=== PATIENT | female | born 1990 | race Two or more races ===

== ENCOUNTER → 2023-07-01 | Outpatient (CLI) | payer MEDICAID ==
[2023-07-01 07:41] LABS: Basophils # (auto) 0.1 10 ^3/uL (0-0.2); Basophils % (auto) 1.1 % (0.0-2.0); Eosinophils # (auto) 0.1 10 ^3/uL (0-0.8); Eosinophils % (auto) 1.4 % (0.0-7.0); Hematocrit 37.5 % (36.0-46.0); Hemoglobin 12.6 g/dL (12.2-16.2); Lymphocytes # (auto) 3.2 10 ^3/uL (0.4-5.4); Lymphocytes % (auto) 43.1 % (10.0-50.0); Mean Corpuscular Hemoglobin 30.1 pg (28.0-32.0); Mean Corpuscular Hgb Conc. 33.5 g/dL (32.0-36.0); Mean Corpuscular Volume 89.9 fL (80.0-100.0); Monocytes # (auto) 0.5 10 ^3/uL (0-1.3); Monocytes % (auto) 6.6 % (0.0-12.0); Neutrophils # (auto) 3.6 10 ^3/uL (1.6-8.6); Neutrophils % (auto) 47.8 % (37.0-80.0); Nucleated Red Blood Cells % 0.1 %; Red Blood Cells 4.18 10^6/uL (4.0-5.20); Red Cell Distribution Width 13.6 % (11.8-14.3); White Blood Cell 7.4 10^3/uL (4.4-10.8)
[2023-07-01 08:47] LABS: Follicle Stimulating Hormone 5.61 IU/L (SEE BELOW); Leuteinizing Hormone 5.1 IU/L
[2023-07-01 08:48] LABS: Prolactin 4.66 ng/mL (2.8-29.2)
== END | disposition home or self-care (01) ==
LOC: LAB 07:22
PROVIDERS: ATTEND Obstetrics & Gynecology
DX: N92.6 Irregular menstruation, unspecified (principal)
CPT/HCPCS: 36415; 82626; 82670; 83001; 83002; 83036; 84146; 84403; 84443; 85025

== ENCOUNTER 2023-10-13 08:13 | Emergency (ER) | payer MEDICAID ==
[~2023-10-13] VITALS: Ht 160 cm; Wt 101.0 kg
[2023-10-13 09:29] VITALS: BP 118/77; PULSE 80; RESP 18; O2SAT 98
[2023-10-13 10:02] LABS: Urine Bacteria FEW /hpf (None Seen); Urine Blood 3+ /uL (Negative); Urine Clarity Turbid (Clear); Urine Color Yellow (Yellow); Urine Mucus FEW (None Seen); Urine Protein, UAD 1+ (Negative); Urine Specific Gravity 1.032 (1.001-1.035); Urine Urobilinogen 2 mg/dL (Negative); Urine WBC 8 /hpf (0 - 5)
[2023-10-13] MEDS ORDERED: CEPH250C PO (11:00)
== END 2023-10-13 11:30 | disposition home or self-care (01) ==
LOC: ER 08:13
DX: O23.41 Unspecified infection of urinary tract in pregnancy, first trimester (principal); R10.2 Pelvic and perineal pain; Z3A.01 Less than 8 weeks gestation of pregnancy; Z79.899 Other long term (current) drug therapy
CPT/HCPCS: 36415; 76801; 76817; 81001; 84702

== ENCOUNTER 2023-12-02 09:34 | Emergency (ER) | payer MEDICAID ==
[~2023-12-02] VITALS: Ht 160 cm; Wt 98.9 kg
[~2023-12-02 09:34] MED LIST: CEPH250C PO
[2023-12-02 10:35] LABS: Urine Bacteria FEW /hpf (None Seen); Urine Blood Negative /uL (Negative); Urine Clarity Clear (Clear); Urine Color Colorless (Yellow); Urine Protein, UAD Negative (Negative); Urine Specific Gravity 1.004 (1.001-1.035); Urine Urobilinogen Normal (Negative); Urine WBC <1 /hpf (0 - 5)
[2023-12-02 12:31] VITALS: BP 124/81; PULSE 104; RESP 16; TEMP 98; O2SAT 98
== END 2023-12-02 13:40 | disposition home or self-care (01) ==
LOC: ER 09:34
DX: O26.892 Other specified pregnancy related conditions, second trimester (principal); R10.2 Pelvic and perineal pain; Z3A.14 14 weeks gestation of pregnancy
CPT/HCPCS: 76805; 81001

== ENCOUNTER 2024-01-16 09:45 | Observation (INO) | payer MEDICAID | END 2024-01-16 10:34 | disposition home or self-care (01) | LOC: UNDOADMOB 09:45 → LDRP 09:45 → UNDODISOB 10:34 | PROVIDERS: ADMIT Obstetrics & Gynecology; ATTEND Obstetrics & Gynecology | DX: O36.8120 Decreased fetal movements, second trimester, not applicable or unspecified (principal); Z3A.20 20 weeks gestation of pregnancy | CPT/HCPCS: 81002; 94760; G0378 ==

== ENCOUNTER 2024-03-27 10:00 | Observation (INO) | payer MEDICAID ==
--- NOTE | 2024-03-27 10:34 | DVH ---
BIOPHYSICAL PROFILE HISTORY: GDMA2 TECHNIQUE: Multiple transabdominal real-time grayscale sonographic images through the gravid uterus of the fetus with duplex Doppler color flow and M-mode spectral analysis FINDINGS: BIOPHYSICAL PROFILE: breathing score: 2 movement score: 2 tone score: 2 Quantitative LIANE score: 2 (LIANE: 14.1 Cm.) Total score: 8 The cervix not well visualized. Single live fetus in vertex presentation. heart rate 142 beats per minute. Anterior placenta without previa or abruption IMPRESSION: Biophysical profile score: 8
[2024-03-27 11:54] LABS: Basophils # (auto) 0.1 10 ^3/uL (0-0.2); Basophils % (auto) 0.7 % (0.0-2.0); Eosinophils # (auto) 0.1 10 ^3/uL (0-0.8); Eosinophils % (auto) 1.5 % (0.0-7.0); Hematocrit 32.5 % (36.0-46.0); Hemoglobin 11.5 g/dL (12.2-16.2); Lymphocytes # (auto) 2.7 10 ^3/uL (0.4-5.4); Lymphocytes % (auto) 30.6 % (10.0-50.0); Mean Corpuscular Hgb Conc. 35.4 g/dL (32.0-36.0); Mean Corpuscular Volume 90.4 fL (80.0-100.0); Monocytes # (auto) 0.6 10 ^3/uL (0-1.3); Monocytes % (auto) 6.9 % (0.0-12.0); Neutrophils # (auto) 5.4 10 ^3/uL (1.6-8.6); Neutrophils % (auto) 60.3 % (37.0-80.0); Platelet Count (auto) 374 10^3/uL (140-450); Red Blood Cells 3.59 10^6/uL (4.0-5.20); Red Cell Distribution Width 13.8 % (11.8-14.3); White Blood Cell 8.9 10^3/uL (4.4-10.8)
[2024-03-27 12:09] LABS: INR 1.02 (0.9-1.15); Partial Thromboplastin Time 28.9 SEC (24.5-34.5); Prothrombin Time 10.8 sec (9.3-11.8)
[2024-03-27 12:19] LABS: Urine Bacteria None Seen /hpf (None Seen)
[2024-03-27] MEDS ORDERED: LABE100T7 PO (12:25)
[2024-03-27] MEDS ORDERED: PREN-96 PO (12:25)
[2024-03-27 12:31] LABS: Alanine Aminotransferase 19 U/L (7-40); Albumin 4.1 g/dL (3.2-4.8); Alkaline Phosphatase 64 U/L (46-116); Anion Gap 8 (5-15); Aspartate Aminotransferase 16 U/L (13-40); Calcium 9.5 mg/dL (8.7-10.4); Carbon Dioxide 20 mmol/L (20-31); Chloride 111 mmol/L (98-107); Glucose 106 mg/dL (74-106); Potassium 3.5 mmol/L (3.5-5.1); Sodium 139 mmol/L (136-145); Uric Acid 3.9 mg/dL (3.1-7.8)
[2024-03-27 12:32] LABS: Bilirubin, Total 0.3 mg/dL (0.2-1.0); Total Protein 6.4 g/dL (5.7-8.2)
[2024-03-27 12:39] LABS: Protein, Urine 87.4 mg/dL (1-14)
[2024-03-27 12:40] LABS: BUN/Creatinine Ratio 9.3 (10.0-20.0); Blood Urea Nitrogen < 5 mg/dL (9-23)
[2024-03-27 12:44] LABS: Urine Blood Negative /uL (Negative); Urine Clarity Turbid (Clear); Urine Color Yellow (Yellow); Urine Mucus FEW (None Seen); Urine Protein, UAD 1+ (Negative); Urine Specific Gravity 1.033 (1.001-1.035); Urine Urobilinogen 3 mg/dL (Negative); Urine WBC 3 /hpf (0 - 5); Urine pH 6.5 (5.0-9.0)
[2024-03-27 12:50] LABS: Creatinine, Urine 261.81 mg/dL (30.0-125.0); Urine Protein/Creatinine Ratio 0.33
[2024-03-27] MEDS ORDERED: URSO300C2 PO (13:12)
--- NOTE | 2024-03-27 19:10 | DVHDS2 ---
Physician Discharge Progress N Final Diagnosis: Preeclampsia Problems List: (1) Chronic hypertension during (2) Preeclampsia (3) Third trimester (4) GDM, class A2 Operations or Procedures: Operations or Procedures 34yo IUP@30.4wks, pt sent from Dr. Menon's office with c/o itching in palms of hands and soles of feet. PNC with Dr. Menon, GDMA2/cHTN. +FM, denies UCs/LOF/VB/CABRERA/vision changes/RUQ pain. VSS except intermittent HTN UA wnl NST reactive (verified by 2 RNs) BPP wnl Bile acids ordered FKC/PTL/PreE precautions reviewed. Dr. Menon consulted, agrees with POC. Rx sent for ursodiol 300mg PO BID per Dr. Menon. [facility] Laboratory Tests Test 03/27/24 10:00 03/27/24 10:40 03/27/24 11:29 Range/Units Urine Color Yellow Yellow Urine Clarity Turbid H Clear Urine pH 6.5 5.0-9.0 Urine Specific [place] 1.033 1.001-1.035 Urine Protein 1+ H Negative Urine Ketones Negative Negative Urine Blood Negative Negative /uL Urine Nitrite Negative Negative Urine Bilirubin Negative Negative Urine Urobilinogen 3 H Negative mg/dL Urine Leukocyte Esterase Negative Negative /uL Urine RBC 2 0 - 4 /hpf Urine WBC 3 0 - 5 /hpf Urine Squamous Epithelial Cells Mod <5 /hpf Urine Bacteria None seen None Seen /hpf Urine Mucus Few None Seen Urine Creatinine 261.81 H 30.0-125.0 mg/dL Urine Protein/Creatinine Ratio 0.33 Urine Glucose Trace Normal mg/dL Urine Total Protein 87.4 H 1-14 mg/dL POC Glucose 121 H 70-106 mg/dl White Blood Count 8.9 4.4-10.8 10^3/uL Red Blood Count 3.59 L 4.0-5.20 10^6/uL Hemoglobin 11.5 L 12.2-16.2 g/dL Hematocrit 32.5 L 36.0-46.0 % Mean Corpuscular Volume 90.4 80.0-100.0 fL Mean Corpuscular Hemoglobin 32.0 28.0-32.0 pg Mean Corpuscular Hemoglobin Concent 35.4 32.0-36.0 g/dL Red Cell Distribution Width 13.8 11.8-14.3 % Platelet Count 374 140-450 10^3/uL Mean Platelet Volume 8.0 6.9-10.8 fL Neutrophils (%) (Auto) 60.3 37.0-80.0 % Lymphocytes (%) (Auto) 30.6 10.0-50.0 % Monocytes (%) (Auto) 6.9 0.0-12.0 % Eosinophils (%) (Auto) 1.5 0.0-7.0 % Basophils (%) (Auto) 0.7 0.0-2.0 % Neutrophils # (Auto) 5.4 1.6-8.6 10 ^3/uL Lymphocytes # (Auto) 2.7 0.4-5.4 10 ^3/uL Monocytes # (Auto) 0.6 0-1.3 10 ^3/uL Eosinophils # (Auto) 0.1 0-0.8 10 ^3/uL Basophils # (Auto) 0.1 0-0.2 10 ^3/uL Nucleated Red Blood Cells 0.0 % Prothrombin Time 10.8 9.3-11.8 sec Prothrombin Time INR 1.02 0.9-1.15 Activated Partial Thromboplast Time 28.9 24.5-34.5 SEC Miscellaneous Ref[facility]Refrg[facility] Sodium Level 139 136-145 mmol/L Potassium Level 3.5 3.5-5.1 mmol/L Chloride Level 111 H 98-107 mmol/L Carbon Dioxide Level 20 20-31 mmol/L Anion Gap 8 5-15 Blood Urea Nitrogen < 5 L 9-23 mg/dL Creatinine 0.54 L 0.550-1.02 mg/dL Glomerular Filtration Rate Calc 125 >90 mL/min BUN/Creatinine Ratio 9.3 L 10.0-20.0 Serum Glucose 106 74-106 mg/dL Uric Acid 3.9 3.1-7.8 mg/dL Calcium Level 9.5 8.7-10.4 mg/dL Total Bilirubin 0.3 0.2-1.0 mg/dL Aspartate Amino Transferase (AST) 16 13-40 U/L Alanine Aminotransferase (ALT) 19 7-40 U/L Alkaline Phosphatase 64 46-116 U/L Total Protein 6.4 5.7-8.2 g/dL Albumin 4.1 3.2-4.8 g/dL Condition on Discharge: Stable Disposition: Home Discharge Instructions: Diet: Consistent carbohydrate Activity: No Restrictions, As Tolerated Medications: see med list Follow Up Care: Specialist: f[facility] Discharge Statement: "Patient was advised to return to the ER or call 911 if any headaches, dizziness, shortness of breath, chest pain, abdominal pain, bleeding, fevers, or worsening of medical condition. Patient was counseled about treatment plan, medications, possible side effects, patientverbalized understanding. All questions were answered to the best of my ability. This discharge took greater then 30 minutes in planning, reviewing documentation, counseling the patient, and discussing with other team members." LAWANDA FOSTER CNM Mar 27, 2024 19:10
== END 2024-03-27 13:09 | disposition home or self-care (01) ==
LOC: LDRP 10:00
PROVIDERS: ADMIT Obstetrics & Gynecology; ATTEND Obstetrics & Gynecology
DX: O14.93 Unspecified pre-eclampsia, third trimester (principal); O24.419 Gestational diabetes mellitus in pregnancy, unspecified control; O13.3 Gestational [pregnancy-induced] hypertension without significant proteinuria, third trimester; O26.893 Other specified pregnancy related conditions, third trimester; R11.0 Nausea; R51.9 Headache, unspecified; Z3A.30 30 weeks gestation of pregnancy; Z79.899 Other long term (current) drug therapy; Z98.890 Other specified postprocedural states
CPT/HCPCS: 36415; 59025; 76818; 80053; 81001; 81002; 82570; 82948; 82962; 84156; 84550; 85025; 85610; 85730; 94760; G0378

== ENCOUNTER 2024-03-30 08:04 | Observation (INO) | payer MEDICAID ==
[~2024-03-30 08:04] MED LIST changes: -CEPH250C PO; +LABE100T7 PO; +PREN-96 PO; +URSO300C2 PO
--- NOTE | 2024-03-30 09:09 | DVH ---
BIOPHYSICAL PROFILE HISTORY: GDMA2/CHTN/Nishi TECHNIQUE: Multiple transabdominal real-time grayscale sonographic images through the gravid uterus of the fetus with duplex Doppler color flow and M-mode spectral analysis FINDINGS: BIOPHYSICAL PROFILE: breathing score: 2 movement score: 2 tone score: 2 Quantitative LIANE score: 2 (LIANE: 14.8 Cm.) Total score: 8 The cervix was not seen. heart rate 157 beats per minute. IMPRESSION: Biophysical profile score: 8
[2024-03-30 11:53] LABS: Amphetamine Screen, Urine Neg (NEGATIVE); Benzodiazephine Screen, Urine Neg (NEGATIVE)
[2024-03-30 11:54] LABS: Barbiturate Scree,Urine Neg (NEGATIVE); Cannabinoid Screen, Urine Neg (NEGATIVE); Cocaine Screen, Urine Neg (NEGATIVE); Opiate Scree,Urine Neg (NEGATIVE); Phencyclidine Screen, Urine Neg (NEGATIVE)
--- NOTE | 2024-03-30 17:07 | DVHDS2 ---
Physician Discharge Progress N Final Diagnosis: GDMA2, CHTN, Cholestasis Operations or Procedures: Operations or Procedures NST/BPP/LIANE Accucheck ALL the above WNL Condition on Discharge: Stable Disposition: Home Discharge Instructions: Diet: Consistent carbohydrate Activity: No Restrictions, As Tolerated Follow Up/Referral: as scheduled Medications: N/A Follow Up Care: Discharge Statement: "Patient was advised to return to the ER or call 911 if any headaches, dizziness, shortness of breath, chest pain, abdominal pain, bleeding, fevers, or worsening of medical condition. Patient was counseled about treatment plan, medications, possible side effects, patientverbalized understanding. All questions were answered to the best of my ability. This discharge took greater then 30 minutes in planning, reviewing documentation, counseling the patient, and discussing with other team members." ANDREA INMAN DO Mar 30, 2024 17:07
== END 2024-03-30 12:12 | disposition home or self-care (01) ==
LOC: LDRP 08:04
PROVIDERS: ADMIT Obstetrics & Gynecology; ATTEND Obstetrics & Gynecology
DX: O24.419 Gestational diabetes mellitus in pregnancy, unspecified control (principal); O13.3 Gestational [pregnancy-induced] hypertension without significant proteinuria, third trimester; O26.643 Intrahepatic cholestasis of pregnancy, third trimester; K83.1 Obstruction of bile duct; Z3A.31 31 weeks gestation of pregnancy; Z79.899 Other long term (current) drug therapy
CPT/HCPCS: 59025; 76818; 80307; 81002; 82948; 82962; 94760; G0378

== ENCOUNTER 2024-04-03 08:03 | Observation (INO) | payer MEDICAID ==
[~2024-04-03] VITALS: Ht 160 cm; Wt 68.0 kg
[2024-04-03] MEDS ORDERED: LACTATED RINGER'S 1,000 ML IV ONE (08:45)
[2024-04-03] MEDS: LACTATED RINGER'S 1,000 ML IV ONE (09:13)
[2024-04-03] MEDS: BETAMETHASONE ACET (30mg/5ml) 5ml Vial 6mg/ml IM ONE (09:14)
[2024-04-03] MEDS: TERBUTALINE SULFATE 1 MG/ML 1ML VIAL SC SCH (09:34)
--- NOTE | 2024-04-03 10:22 | DVH ---
BIOPHYSICAL PROFILE HISTORY: GDMA2/yuli/CHTN TECHNIQUE: Multiple transabdominal real-time grayscale sonographic images through the gravid uterus of the fetus with duplex Doppler color flow and M-mode spectral analysis FINDINGS: BIOPHYSICAL PROFILE: breathing score: 2 movement score: 2 tone score: 2 Quantitative LIANE score: 2 (LIANE: 21.2 Cm.) Total score: 8/8 Single live fetus in cephalic presentation. heart rate 144 beats per minute. Anterior placenta without previa or abruption IMPRESSION: 1. Biophysical profile score: 8/8 HS:Y
--- NOTE | 2024-04-03 11:45 | DVH ---
CLINICAL HISTORY: cervical length/ labor. TECHNIQUE: Limited transvaginal sonographic imaging of the cervix was performed to evaluate cervical length. COMPARISON: Correlation made to recent BP exam dated 04/03/2024. FINDINGS: Cervical length measures 3.6 cm. There is funneling of the cervix extending up to 2.4 cm. IMPRESSION: Funneling of the cervix with cervical length of 3.6 cm.
[2024-04-03] MEDS ORDERED: NIFE10CA52 PO ×2 (11:55)
[2024-04-03] MEDS ORDERED: METF-370 PO (12:11)
[2024-04-03] MEDS ORDERED: GLYB2.5T8 PO (12:11)
--- NOTE | 2024-04-03 18:12 | DVHDS2 ---
Physician Discharge Progress N Final Diagnosis: testing for GDMA2, CHTN, Preeclampsia, cholestasis Secondary Diagnosis: PTL Problems List: (1) Preeclampsia (2) Third trimester (3) GDM, class A2 (4) labor (5) Cholestasis during (6) Chronic hypertension during Operations or Procedures: Operations or Procedures 34yo IUP@31.4wks here for testing. Denies UCs/LOF/VB/CABRERA/vision changes/RUQ pain. Endorses +FM. VSS NST reactive TOCO: regular UCs initially that resolved with treatment Treated PTL with terbutaline SQ x3 and 1L LR IV bolus Betamethasone IM first dose given BPP wnl CVL 3.4cm with funneling FKC/PTL precautions reviewed Pt scheduled to see ship wirer at [facility] OB office today 04/03/24 at 1315 d ue to pts hx of not showing up to those diabetes edu visits. Pt educated on risks of IUFD with uncontrolled GDMA2. Dr. Menon consulted, agrees with POC. Rx sent for procardia for pt to take until 36 wks. Condition on Discharge: Stable Disposition: Home Discharge Instructions: Diet: Consistent carbohydrate Activity: See Comment Activity comment: pelvic rest Follow Up/Referral: f/u with [facility] on 04/04/24 for second dose of betamethasone Medications: see med list Follow Up Care: Specialist: f/u on 04/04/24 Discharge Statement: "Patient was advised to return to the ER or call 911 if any headaches, dizziness, shortness of breath, chest pain, abdominal pain, bleeding, fevers, or worsening of medical condition. Patient was counseled about treatment plan, medications, possible side effects, patientverbalized understanding. All questions were answered to the best of my ability. This discharge took greater then 30 minutes in planning, reviewing documentation, counseling the patient, and discussing with other team members." LAWANDA FOSTER CNM Apr 03, 2024 18:12
== END 2024-04-03 12:22 | disposition home or self-care (01) ==
LOC: LDRP 08:03
PROVIDERS: ADMIT Obstetrics & Gynecology; ATTEND Obstetrics & Gynecology
DX: O14.93 Unspecified pre-eclampsia, third trimester (principal); O24.419 Gestational diabetes mellitus in pregnancy, unspecified control; O60.03 Preterm labor without delivery, third trimester; O26.643 Intrahepatic cholestasis of pregnancy, third trimester; K83.1 Obstruction of bile duct; O13.3 Gestational [pregnancy-induced] hypertension without significant proteinuria, third trimester; Z3A.31 31 weeks gestation of pregnancy; Z88.0 Allergy status to penicillin; Z88.5 Allergy status to narcotic agent; Z79.899 Other long term (current) drug therapy
CPT/HCPCS: 59025; 76815; 76818; 81002; 82948; 82962; 94760; 96360; 96361; 96372; G0378; J0702; J3105

== ENCOUNTER 2024-04-04 11:30 | Observation (INO) | payer MEDICAID ==
[~2024-04-04 11:30] MED LIST changes: +GLYB2.5T8 PO; -LABE100T7 PO; +METF-370 PO; +NIFE10CA52 PO
[2024-04-04] MEDS: BETAMETHASONE ACET (30mg/5ml) 5ml Vial 6mg/ml IM ONE (12:18)
--- NOTE | 2024-04-04 12:48 | DVHDS2 ---
Physician Discharge Progress N Final Diagnosis: gdm Operations or Procedures: Operations or Procedures nst,celestone Condition on Discharge: Good Disposition: Home Discharge Instructions: Diet: Regular Activity: No Restrictions, As Tolerated Medications: na Follow Up Care: Specialist: 2d Discharge Statement: "Patient was advised to return to the ER or call 911 if any headaches, dizziness, shortness of breath, chest pain, abdominal pain, bleeding, fevers, or worsening of medical condition. Patient was counseled about treatment plan, medications, possible side effects, patientverbalized understanding. All questions were answered to the best of my ability. This discharge took greater then 30 minutes in planning, reviewing documentation, counseling the patient, and discussing with other team members." EDIS MILLER DO Apr 04, 2024 12:48
[2024-04-04] MEDS: LACTATED RINGER'S 1,000 ML IV ONE (13:30)
== END 2024-04-04 15:03 | disposition home or self-care (01) ==
LOC: LDRP 11:30
PROVIDERS: ADMIT Obstetrics & Gynecology; ATTEND Obstetrics & Gynecology
DX: O24.419 Gestational diabetes mellitus in pregnancy, unspecified control (principal); O13.3 Gestational [pregnancy-induced] hypertension without significant proteinuria, third trimester; Z3A.31 31 weeks gestation of pregnancy; Z88.0 Allergy status to penicillin; Z88.5 Allergy status to narcotic agent; Z88.1 Allergy status to other antibiotic agents; Z79.899 Other long term (current) drug therapy
CPT/HCPCS: 59025; 81002; 82948; 82962; 94760; 96360; 96361; 96372; G0378

== ENCOUNTER 2024-04-07 04:15 | Observation (INO) | payer MEDICAID ==
[~2024-04-07 04:15] MED LIST changes: +LABE100T7 PO
--- NOTE | 2024-04-07 09:03 | DVH ---
CLINICAL HISTORY: Gestational diabetes. Hypertension. Cholestasis. COMPARISON: US BIOPHYSICAL PROFILE on DOS: 04/03/24, US BIOPHYSICAL PROFILE on DOS: 03/30/24, US BIOP HYSICAL PROFILE on DOS: 03/27/24 TECHNIQUE: biophysical profile was performed. Transabdominal sonographic images of the fetus we re obtained. FINDINGS: The fetus is in cephalic position. heart rate measures 153 BPM. Amniotic fluid index measures 18.5 cm. The placenta is anterior in position. Cervix is closed, measuring up to 3.1 cm in l ength. BPP profile is an overall score of 8/8, with 2/2 points for breathing, with at least one episode of breathing over a 30 second duration during a 30 minute observation, 2/2 points for m ovements, with 3 or more discrete body or limb movements, 2/2 points for tone, with one or more episodes of extremity extension with return to flexion, or opening and closing of hand, and 2/ 2 points for amniotic fluid, with at least 1 pocket of amniotic fluid that measures 2 cm in 2 perpend icular planes. IMPRESSION: BPP score of 8/8.
--- NOTE | 2024-04-07 19:00 | DVHDS2 ---
Physician Discharge Progress N Final Diagnosis: gdm Operations or Procedures: Operations or Procedures nst,sono Other Interventions Other Interventions pt urhged to be compliant with gdm Condition on Discharge: Good Disposition: Home Discharge Instructions: Diet: Consistent carbohydrate Activity: No Restrictions, As Tolerated Medications: na Follow Up Care: Specialist: 3d Discharge Statement: "Patient was advised to return to the ER or call 911 if any headaches, dizz iness, shortness of breath, chest pain, abdominal pain, bleeding, fevers, or worsening of medical condition. Patient was counseled about treatment plan, medications, possible side effects, patientverbalized understanding. All questions were answered to the best of my ability. This discharge took greater then 30 minutes in planning, reviewing documentation, counseling the patient, and discussing with other team members." EDIS MILLER DO Apr 07, 2024 19:00
== END 2024-04-07 09:30 | disposition home or self-care (01) ==
LOC: LDRP 07:55
PROVIDERS: ADMIT Obstetrics & Gynecology; ATTEND Obstetrics & Gynecology
DX: O26.643 Intrahepatic cholestasis of pregnancy, third trimester (principal); K83.1 Obstruction of bile duct; O24.419 Gestational diabetes mellitus in pregnancy, unspecified control; O13.3 Gestational [pregnancy-induced] hypertension without significant proteinuria, third trimester; Z79.899 Other long term (current) drug therapy; Z98.890 Other specified postprocedural states; Z3A.32 32 weeks gestation of pregnancy
CPT/HCPCS: 59025; 76818; 81002; 82948; 82962; 94760; G0378

== ENCOUNTER 2024-04-10 08:14 | Observation (INO) | payer MEDICAID ==
[~2024-04-10] VITALS: Ht 162.6 cm; Wt 83.9 kg
[~2024-04-10 08:14] MED LIST changes: -LABE100T7 PO
--- NOTE | 2024-04-10 08:54 | DVH ---
BIOPHYSICAL PROFILE HISTORY: Matthew/HTN/GDMA2 Comparison Study: 04/07/2024 TECHNIQUE: Multiple real-time grayscale sonographic images through the gravid uterus of the fetus wi th duplex Doppler color flow and M-mode spectral analysis FINDINGS: BIOPHYSICAL PROFILE: breathing score: 2 movement score: 2 tone score: 2 Quantitative LIANE score: 2 (LIANE: 16.2 Cm.) Total score: 8 The cervix is closed and measures 3.2 cm Single live fetus in cephalic presentation. heart rate 154 beats per minute. Anterior placenta without previa or abruption IMPRESSION: Biophysical profile score: 8
[2024-04-10 10:20] LABS: Basophils # (auto) 0 10 ^3/uL (0-0.2); Basophils % (auto) 0.3 % (0.0-2.0); Eosinophils # (auto) 0.1 10 ^3/uL (0-0.8); Hematocrit 31.7 % (36.0-46.0); Hemoglobin 10.6 g/dL (12.2-16.2); Lymphocytes # (auto) 2.6 10 ^3/uL (0.4-5.4); Lymphocytes % (auto) 28.6 % (10.0-50.0); Mean Corpuscular Hemoglobin 30.2 pg (28.0-32.0); Mean Corpuscular Hgb Conc. 33.5 g/dL (32.0-36.0); Monocytes # (auto) 0.7 10 ^3/uL (0-1.3); Monocytes % (auto) 7.3 % (0.0-12.0); Neutrophils # (auto) 5.7 10 ^3/uL (1.6-8.6); Neutrophils % (auto) 62.8 % (37.0-80.0); Platelet Count (auto) 360 10^3/uL (140-450); Red Blood Cells 3.52 10^6/uL (4.0-5.20); Red Cell Distribution Width 13.7 % (11.8-14.3); White Blood Cell 9.1 10^3/uL (4.4-10.8)
[2024-04-10 10:37] LABS: INR 1.01 (0.9-1.15); Prothrombin Time 10.7 sec (9.3-11.8)
[2024-04-10 10:41] LABS: Alanine Aminotransferase < 9 U/L (7-40); Albumin 3.6 g/dL (3.2-4.8); Alkaline Phosphatase 58 U/L (46-116); Anion Gap 9 (5-15); Aspartate Aminotransferase < 8 U/L (13-40); BUN/Creatinine Ratio 10.7 (10.0-20.0); Bilirubin, Total 0.2 mg/dL (0.2-1.0); Blood Urea Nitrogen 8 mg/dL (9-23); Calcium 9.2 mg/dL (8.7-10.4); Carbon Dioxide 19 mmol/L (20-31); Chloride 108 mmol/L (98-107); Glucose 97 mg/dL (74-106); Potassium 3.6 mmol/L (3.5-5.1); Sodium 136 mmol/L (136-145); Total Protein 5.6 g/dL (5.7-8.2)
[2024-04-10] MEDS ORDERED: NIFE10CA52 PO (11:42)
--- NOTE | 2024-04-10 11:42 | DVHDS2 ---
Physician Discharge Progress N Final Diagnosis: testing for GDMA2, yuli, cHTN, preE Operations or Procedures: Operations or Procedures 34yo IUP@32.4wks, +FM, denies UCs/VB/LOF. Pt reports feeling sick. VSS except hypotension (1L LR IV bolus given) UA wnl Category II EFM BPP 12/14 PreE repeat labs ordered Dr. Menon made aware of EFM and lab/sono results, orders given to D/C home and return for NST/BPP on tuesday04/13/24. Changed procardia 10mg PO from q4hrs to Q8hrs for hypotension. FKC/PTL precautions reviewed. Laboratory Tests Test 04/10/24 09:46 04/10/24 10:07 Range/Units White Blood Count 9.1 4.4-10.8 10^3/uL Red Blood Count 3.52 L 4.0-5.20 10^6/uL Hemoglobin 10.6 L 12.2-16.2 g/dL Hematocrit 31.7 L 36.0-46.0 % Mean Corpuscular Volume 90.0 80.0-100.0 fL Mean Corpuscular Hemoglobin 30.2 28.0-32.0 pg Mean Corpuscular Hemoglobin Concent 33.5 32.0-36.0 g/dL Red Cell Distribution Width 13.7 11.8-14.3 % Platelet Count 360 140-450 10^3/uL Mean Platelet Volume 9.0 6.9-10.8 fL Neutrophils (%) (Auto) 62.8 37.0-80.0 % Lymphocytes (%) (Auto) 28.6 10.0-50.0 % Monocytes (%) (Auto) 7.3 0.0-12.0 % Eosinophils (%) (Auto) 1.0 0.0-7.0 % Basophils (%) (Auto) 0.3 0.0-2.0 % Neutrophils # (Auto) 5.7 1.6-8.6 10 ^3/uL Lymphocytes # (Auto) 2.6 0.4-5.4 10 ^3/uL Monocytes # (Auto) 0.7 0-1.3 10 ^3/uL Eosinophils # (Auto) 0.1 0-0.8 10 ^3/uL Basophils # (Auto) 0 0-0.2 10 ^3/uL Nucleated Red Blood Cells 0.0 % Prothrombin Time 10.7 9.3-11.8 sec Prothrombin Time INR 1.01 0.9-1.15 Activated Partial Thromboplast Time 29.0 24.5-34.5 SEC Sodium Level 136 136-145 mmol/L Potassium Level 3.6 3.5-5.1 mmol/L Chloride Level 108 H 98-107 mmol/L Carbon Dioxide Level 19 L 20-31 mmol/L Anion Gap 9 5-15 Blood Urea Nitrogen 8 L 9-23 mg/dL Creatinine 0.75 0.550-1.02 mg/dL Glomerular Filtration Rate Calc 108 >90 mL/min BUN/Creatinine Ratio 10.7 10.0-20.0 Serum Glucose 97 74-106 mg/dL Hemoglobin A1c 6.2 H <5.7 % A1C Uric Acid 4.0 3.1-7.8 mg/dL Calcium Level 9.2 8.7-10.4 mg/dL Total Bilirubin 0.2 0.2-1.0 mg/dL Aspartate Amino Transferase (AST) < 8 L 13-40 U/L Alanine Aminotransferase (ALT) < 9 7-40 U/L Alkaline Phosphatase 58 46-116 U/L Total Protein 5.6 L 5.7-8.2 g/dL Albumin 3.6 3.2-4.8 g/dL POC Glucose 96 70-106 mg/dl Other Interventions Other Interventions [place] [address] Ph: [phone] DIAGNOSTIC IMAGING Diagnostic Imaging Report : [id number] Signed PATIENT: AARTI CARDENAS ACCT: [id number] UNIT: [id number] : 1990 LOC: [facility] ROOM / BED: TRIAGE1 / A AGE / SEX: 34 / F ADM STATUS: ADM IN SERVICE 3 ORDERING PHYSICIAN: LAWANDA FOSTER CNM PROCEDURE(s): BPP - BIOPHYSICAL PROFILE REASON: Yuli/HTN/GDMA2 ORDER NUMBER(s): [id number], ACCESSION NUMBER(s): [id number] BIOPHYSICAL PROFILE HISTORY: Yuli/HTN/GDMA2 Comparison Study: 04/07/2024 TECHNIQUE: Multiple real-time grayscale sonographic images through the gravid uterus of the fetus with duplex Doppler color flow and M-mode spectral analysis FINDINGS: BIOPHYSICAL PROFILE: breathing score: 2 movement score: 2 tone score: 2 Quantitative LIANE score: 2 (LIANE: 16.2 Cm.) Total score: 8 The cervix is closed and measures 3.2 cm Single live fetus in cephalic presentation. heart rate 154 beats per minute. Anterior placenta without previa or abruption IMPRESSION: Biophysical profile score: 8 ATED BY: EDGAR MARTINO MD DICTATED DATE/TIME: 04/10/24849 SIGNED BY: EDGAR MARTINO MD SIGNED DATE/TIME: 04/10/24849 CC: Condition on Discharge: Stable Disposition: Home Discharge Instructions: Diet: Consistent carbohydrate Activity: No Restrictions, As Tolerated Medications: see med list Follow Up Care: Specialist: return for NST/BPP on tuesday04/13/24 Discharge Statement: "Patient was advised to return to the ER or call 911 if any headaches, dizziness, shortness of breath, chest pain, abdominal pain, bleeding, fevers, or worsening of medical condition. Patient was counseled about treatment plan, medications, possible side effects, patientverbalized understanding. All questions were answered to the best of my ability. This discharge took greater then 30 minutes in planning, reviewing documentation, counseling the patient, and discussing with other team members." LAWANDA FOSTER CNM Apr 10, 2024 11:42
[2024-04-10 12:38] LABS: Urine Bacteria None Seen /hpf (None Seen)
[2024-04-10 12:50] LABS: Urine Blood Negative /uL (Negative); Urine Clarity Turbid (Clear); Urine Color Yellow (Yellow); Urine Hyaline Cast FEW /lpf (0 - 2); Urine Mucus FEW (None Seen); Urine Protein, UAD 1+ (Negative); Urine Specific Gravity 1.016 (1.001-1.035); Urine Urobilinogen Normal (Negative); Urine WBC 8 /hpf (0 - 5)
[2024-04-10 13:02] LABS: Protein, Urine 65.1 mg/dL (1-14)
[2024-04-10 13:05] LABS: Creatinine, Urine 150.64 mg/dL (30.0-125.0); Urine Protein/Creatinine Ratio 0.43
[2024-04-10] MEDS: LACTATED RINGER'S 1,000 ML IV ONE (13:05)
== END 2024-04-10 12:18 | disposition home or self-care (01) ==
LOC: LDRP 08:14 → UNDOADMOB 08:14 → LDRP 08:15 → UNDODISOB 12:18
PROVIDERS: ADMIT Obstetrics & Gynecology; ATTEND Obstetrics & Gynecology
DX: O24.419 Gestational diabetes mellitus in pregnancy, unspecified control (principal); O13.3 Gestational [pregnancy-induced] hypertension without significant proteinuria, third trimester; O26.643 Intrahepatic cholestasis of pregnancy, third trimester; K83.1 Obstruction of bile duct; Z3A.32 32 weeks gestation of pregnancy; Z88.0 Allergy status to penicillin; Z88.5 Allergy status to narcotic agent; Z79.899 Other long term (current) drug therapy
CPT/HCPCS: 36415; 59025; 76818; 80053; 81001; 81002; 82570; 82948; 82962; 83036; 84156; 84550; 85025; 85610; 85730; 96360; 96361; G0378

== ENCOUNTER 2024-04-13 11:48 | Observation (INO) | payer MEDICAID ==
[~2024-04-13] VITALS: Ht 160 cm; Wt 103.9 kg
[2024-04-20 12:06] LABS: Protein, Urine 44.6 mg/dL (1-14)
[2024-04-20 12:08] LABS: Creatinine, Urine 170.83 mg/dL (30.0-125.0); Urine Protein/Creatinine Ratio 0.26
[2024-04-20 12:10] LABS: Alanine Aminotransferase 14 U/L (7-40); Albumin 4.1 g/dL (3.2-4.8); Alkaline Phosphatase 92 U/L (46-116); Anion Gap 12 (5-15); Aspartate Aminotransferase 15 U/L (13-40); BUN/Creatinine Ratio 9.3 (10.0-20.0); Calcium 10.3 mg/dL (8.7-10.4); Carbon Dioxide 20 mmol/L (20-31); Glucose 103 mg/dL (74-106); Potassium 3.8 mmol/L (3.5-5.1); Sodium 139 mmol/L (136-145)
[2024-04-20 12:11] LABS: Blood Urea Nitrogen 7 mg/dL (9-23); Chloride 107 mmol/L (98-107); Total Protein 6.4 g/dL (5.7-8.2)
[2024-04-20 12:16] LABS: Basophils # (auto) 0.1 10 ^3/uL (0-0.2); Basophils % (auto) 0.7 % (0.0-2.0); Eosinophils # (auto) 0.1 10 ^3/uL (0-0.8); Eosinophils % (auto) 0.6 % (0.0-7.0); Hematocrit 36.1 % (36.0-46.0); Hemoglobin 12.2 g/dL (12.2-16.2); Lymphocytes % (auto) 27.9 % (10.0-50.0); Mean Corpuscular Hemoglobin 30.2 pg (28.0-32.0); Mean Corpuscular Hgb Conc. 33.8 g/dL (32.0-36.0); Mean Corpuscular Volume 89.2 fL (80.0-100.0); Monocytes # (auto) 0.7 10 ^3/uL (0-1.3); Monocytes % (auto) 6.2 % (0.0-12.0); Neutrophils # (auto) 6.9 10 ^3/uL (1.6-8.6); Neutrophils % (auto) 64.6 % (37.0-80.0); Nucleated Red Blood Cells % 0.1 %; Platelet Count (auto) 355 10^3/uL (140-450); Red Blood Cells 4.05 10^6/uL (4.0-5.20); Red Cell Distribution Width 13.6 % (11.8-14.3); White Blood Cell 10.7 10^3/uL (4.4-10.8)
[2024-04-20 12:21] LABS: Uric Acid 5.1 mg/dL (3.1-7.8)
[2024-04-20 12:25] LABS: Bilirubin, Total 0.2 mg/dL (0.2-1.0)
--- NOTE | 2024-04-20 12:47 | DVH ---
BIOPHYSICAL PROFILE HISTORY: GDMA2, NESTOR, PTL TECHNIQUE: Multiple transabdominal real-time grayscale sonographic images through the gravid uterus of the fetus with duplex Doppler color flow and M-mode spectral analysis FINDINGS: BIOPHYSICAL PROFILE: breathing score: 2 movement score: 2 tone score: 2 Quantitative LIANE score: 2 (LIANE: 10.0 Cm.) Total score: 8/8 The cervix measures 4.3 cm and contains trace fluid. Single live fetus in cephalic presentation. heart rate 161 beats per minute. Anterior placenta without previa or abruption IMPRESSION: 1. Biophysical profile score: 8/8 2. Trace fluid within the cervix. Cervix measures 4.3 cm in length. HS:Y
[2024-04-20 12:52] LABS: Urine Bacteria FEW /hpf (None Seen); Urine Blood Negative /uL (Negative); Urine Color Yellow (Yellow); Urine Mucus FEW (None Seen); Urine Protein, UAD TRACE (Negative); Urine Specific Gravity 1.025 (1.001-1.035); Urine Squamous Epithelial Cell FEW /hpf (<5); Urine Urobilinogen Normal (Negative); Urine WBC 5 /hpf (0 - 5); Urine pH 6.5 (5.0-9.0)
[2024-04-20 12:53] LABS: Urine Clarity Clear (Clear)
--- NOTE | 2024-04-20 15:11 | DVHDS2 ---
Physician Discharge Progress N Final Diagnosis: GDMA2, Cholestasis of , Threatened labor, Gestational HTN Operations or Procedures: Operations or Procedures NST/BPP/LIANE Accucheck PIH labs ALL OF THE ABOVE WNL Condition on Discharge: Stable Disposition: Home Discharge Instructions: Diet: Consistent carbohydrate Activity: No Restrictions, As Tolerated Follow Up/Referral: As scheduled 2x/wk Medications: No new meds Follow Up Care: Discharge Statement: "Patient was advised to return to the ER or call 911 if any headaches, dizziness, shortness of breath, chest pain, abdominal pain, bleeding, fevers, or worsening of medical condition. Patient was counseled about treatment plan, medications, possible side effects, patientverbalized understanding. All questions were answered to the best of my ability. This discharge took greater then 30 minutes in planning, reviewing documentation, counseling the patient, and discussing with other team members." ANDREA INMAN DO Apr 20, 2024 15:11
== END 2024-04-20 13:46 | disposition home or self-care (01) ==
LOC: UNDOADMOB 04-20 10:17 → LDRP 04-20 10:17 → UNDODISOB 04-20 13:46
PROVIDERS: ADMIT Obstetrics & Gynecology; ATTEND Obstetrics & Gynecology
DX: O24.419 Gestational diabetes mellitus in pregnancy, unspecified control (principal); O13.3 Gestational [pregnancy-induced] hypertension without significant proteinuria, third trimester; O47.03 False labor before 37 completed weeks of gestation, third trimester; O26.643 Intrahepatic cholestasis of pregnancy, third trimester; K83.1 Obstruction of bile duct; Z3A.34 34 weeks gestation of pregnancy; Z88.0 Allergy status to penicillin; Z88.1 Allergy status to other antibiotic agents; Z79.899 Other long term (current) drug therapy
CPT/HCPCS: 36415; 59025; 76817; 76818; 80053; 81001; 81002; 82570; 82948; 82962; 84156; 84550; 85025; G0378

== ENCOUNTER 2024-04-17 08:00 | Observation (INO) | payer MEDICAID ==
--- NOTE | 2024-04-17 09:32 | DVH ---
BIOPHYSICAL PROFILE HISTORY: GDMA2, PIH, Nishi TECHNIQUE: Multiple transabdominal real-time grayscale sonographic images through the gravid uterus of the fetus with duplex Doppler color flow and M-mode spectral analysis FINDINGS: BIOPHYSICAL PROFILE: breathing score: 2 movement score: 2 tone score: 2 Quantitative LIANE score: 2 (LIANE: 13.5 Cm.) Total score: 8 The cervix is closed and measures 3.2 cm. Single live fetus in cephalic presentation. heart rate 154 beats per minute. Grade 1 anterior placenta without previa or abruption IMPRESSION: Biophysical profile score: 8
[2024-04-17] MEDS ORDERED: LACTATED RINGER'S 1,000 ML IV ONE (10:15)
--- NOTE | 2024-04-17 20:55 | DVHDS2 ---
Physician Discharge Progress N Final Diagnosis: testing for cHTN/preE/cholestasis/GDM,A2 Operations or Procedures: Operations or Procedures 34yo IUP@33.4wks. Denies UCs/LOF/VB/CABRERA/vision changes/RUQ pain. +FM. Pt denies UTI or vaginitits s/sx. VSS, hypotensive initially 1L LR IV fluid given, normotensive after UA wnl Category II (FHR 130s, moderate variability, -accels, -decels) SONO: WNL FKC/PTL/PreE precautions reviewed Dr. Menon consulted, reviewed EFM tracing. Discontinue PO procardia 04/19/24 evening. D/C home and f/u on tuesday04/20/24 morning. Condition on Discharge: Stable Disposition: Home Discharge Instructions: Diet: Consistent carbohydrate Activity: Light activity Medications: see med list Follow Up Care: Specialist: f/u on tuesday04/20/24 morning Discharge Statement: "Patient was advised to return to the ER or call 911 if any headaches, dizziness, shortness of breath, chest pain, abdominal pain, bleeding, fevers, or worsening of medical condition. Patient was counseled about treatment plan, medications, possible side effects, patientverbalized understanding. All questions were answered to the best of my ability. This discharge took greater then 30 minutes in planning, reviewing documentation, counseling the patient, and discussing with other team members." LAWANDA FOSTER CNM Apr 17, 2024 20:55
== END 2024-04-17 13:25 | disposition home or self-care (01) ==
LOC: LDRP 08:00
PROVIDERS: ADMIT Obstetrics & Gynecology; ATTEND Obstetrics & Gynecology
DX: O24.419 Gestational diabetes mellitus in pregnancy, unspecified control (principal); O26.643 Intrahepatic cholestasis of pregnancy, third trimester; K83.1 Obstruction of bile duct; O14.93 Unspecified pre-eclampsia, third trimester; O26.53 Maternal hypotension syndrome, third trimester; Z3A.33 33 weeks gestation of pregnancy; Z88.0 Allergy status to penicillin; Z88.5 Allergy status to narcotic agent; Z79.899 Other long term (current) drug therapy
CPT/HCPCS: 59025; 76817; 76818; 81002; 82948; 82962; 94760; 96360; 96361; G0378

== ENCOUNTER 2024-04-22 12:30 | Observation (INO) | payer MEDICAID ==
[~2024-04-22] VITALS: Ht 157.5 cm; Wt 103.9 kg
--- NOTE | 2024-04-22 13:34 | DVH ---
CLINICAL HISTORY: Gestational diabetes. labor. COMPARISON: US BIOPHYSICAL PROFILE on DOS: 04/20/24, US BIOPHYSICAL PROFILE on DOS: 04/17/24, US BIOP HYSICAL PROFILE on DOS: 04/10/24 TECHNIQUE: biophysical profile was performed. Transabdominal sonographic images of the fetus we re obtained. FINDINGS: The fetus is in cephalic position. heart rate measures 158 BPM. Amniotic fluid index measures 9.5 cm. The placenta is anterior in position. Evidence for placenta previa or abruption visu alized Cervix appears closed. BPP profile is an overall score of 8/8, with 2/2 points for breathing, with at least one episode of breathing over a 30 second duration during a 30 minute observation, 2/2 points for m ovements, with 3 or more discrete body or limb movements, 2/2 points for tone, with one or more episodes of extremity extension with return to flexion, or opening and closing of hand, and 2/ 2 points for amniotic fluid, with at least 1 pocket of amniotic fluid that measures 2 cm in 2 perpend icular planes. IMPRESSION: BPP score of 8/8.
[2024-04-22] MEDS ORDERED: ZOFR4T PO (13:45)
[2024-04-22 15:32] LABS: Basophils # (auto) 0 10 ^3/uL (0-0.2); Basophils % (auto) 0.3 % (0.0-2.0); Eosinophils # (auto) 0 10 ^3/uL (0-0.8); Eosinophils % (auto) 0.4 % (0.0-7.0); Hematocrit 35.1 % (36.0-46.0); Hemoglobin 11.8 g/dL (12.2-16.2); Lymphocytes # (auto) 3.2 10 ^3/uL (0.4-5.4); Lymphocytes % (auto) 30.5 % (10.0-50.0); Mean Corpuscular Hemoglobin 29.6 pg (28.0-32.0); Mean Corpuscular Hgb Conc. 33.5 g/dL (32.0-36.0); Mean Corpuscular Volume 88.3 fL (80.0-100.0); Monocytes # (auto) 0.7 10 ^3/uL (0-1.3); Monocytes % (auto) 6.7 % (0.0-12.0); Neutrophils # (auto) 6.6 10 ^3/uL (1.6-8.6); Neutrophils % (auto) 62.1 % (37.0-80.0); Nucleated Red Blood Cells % 0.1 %; Platelet Count (auto) 327 10^3/uL (140-450); Red Blood Cells 3.97 10^6/uL (4.0-5.20); Red Cell Distribution Width 13.6 % (11.8-14.3); White Blood Cell 10.7 10^3/uL (4.4-10.8)
--- NOTE | 2024-04-22 15:34 | DVHDS2 ---
Physician Discharge Progress N Final Diagnosis: 34y G1Po, IUP 34.2 wk, CHTN w/ superimposed severe pre-eclampsia GDMA2, Cholestasis of , NR NST Secondary Diagnosis: Morbid obesity s/p Gastric sleeve procedure Operations or Procedures: Operations or Procedures NST/BPP/ LIANE NST- Baseline 155-160 BPM, non reactive, no decels, minimal variability (Categ II) BPP= 8/8, LIANE 8cm (previously 18cm) Denies PROM PIH labs: Pending 04/22/24. Previous Urine prot/cr ratio 0.26 (04/20/24) Bloos sugar= [facility]: Per patient normal growth, no IUGR reported EFW 5lb 4oz Consultations: Consultations Dr. Nguyen [facility], accepts transfer to [facility] for higher level of care. Commentary: Commentary Bp's stabilized Placed on Magnesium Sulfate bolus 4gm given, 2gm/hr. Wheat cath in place Celestone "rescue dose" 12mg IM given, Previously received full course corticosteroids 2-3 wk ago. Condition on Discharge: Higher Level of Care Disposition: Acute Care Facility Discharge Instructions: Diet: See Comment (NPO) Activity: Light activity Follow Up/Referral: F/U in 1 week if undelivered Medications: See EHR transfer meds Follow Up Care: Discharge Statement: "Patient was advised to return to the ER or call 911 if any headaches, dizziness, shortness of breath, chest pain, abdominal pain, bleeding, fevers, or worsening of medical condition. Patient was counseled about treatment plan, medications, possible side effects, patientverbalized understanding. All questions were answered to the best of my ability. This discharge took greater then 30 minutes in planning, reviewing documentation, counseling the patient, and discussing with other team members." ANDREA INMAN DO Apr 22, 2024 15:34
[2024-04-22 15:46] LABS: INR 1.03 (0.9-1.15); Partial Thromboplastin Time 30.3 SEC (24.5-34.5); Prothrombin Time 10.9 sec (9.3-11.8)
[2024-04-22 15:53] LABS: Alanine Aminotransferase 10 U/L (7-40); Alkaline Phosphatase 82 U/L (46-116); Anion Gap 11 (5-15); Bilirubin, Total 0.3 mg/dL (0.2-1.0); Chloride 107 mmol/L (98-107); Glucose 79 mg/dL (74-106); Potassium 3.8 mmol/L (3.5-5.1); Sodium 136 mmol/L (136-145); Total Protein 6.5 g/dL (5.7-8.2)
[2024-04-22] MEDS: MAGNESIUM SULFATE 100 ML IV ONE (15:55)
[2024-04-22] MEDS: LACTATED RINGER'S 1,000 ML IV SCH (15:56)
[2024-04-22] MEDS: LACTATED RINGER'S 1,000 ML IV ONE (15:56)
[2024-04-22 15:57] LABS: Aspartate Aminotransferase 12 U/L (13-40); Blood Urea Nitrogen 6 mg/dL (9-23); Carbon Dioxide 18 mmol/L (20-31)
[2024-04-22] MEDS: BETAMETHASONE ACET (30mg/5ml) 5ml Vial 6mg/ml IM ONE (16:04)
[2024-04-22 16:08] LABS: Uric Acid 4.9 mg/dL (3.1-7.8)
[2024-04-22] MEDS: MAGNESIUM SULFATE 40MG/ML 1,000 ML IV SCH (16:22)
[2024-04-22 16:42] LABS: Urine Bacteria FEW /hpf (None Seen); Urine Blood Negative /uL (Negative); Urine Clarity Clear (Clear); Urine Color Yellow (Yellow); Urine Protein, UAD TRACE (Negative); Urine Specific Gravity 1.017 (1.001-1.035); Urine Squamous Epithelial Cell FEW /hpf (<5); Urine Urobilinogen Normal (Negative); Urine WBC 4 /hpf (0 - 5); Urine pH 6.5 (5.0-9.0)
[2024-04-22 16:46] LABS: Protein, Urine 38.2 mg/dL (1-14)
[2024-04-22 16:49] LABS: Creatinine, Urine 130.32 mg/dL (30.0-125.0); Urine Protein/Creatinine Ratio 0.29
[2024-04-22] MEDS: LABETALOL HCL 20 MG/4 ML VL IV ONE ×2 (18:17→18:52)
[2024-04-22] MEDS ORDERED: LABETALOL HCL 200 MG TAB PO PRN (18:30)
[2024-04-22 18:53] VITALS: TEMP 98.2
[2024-04-22] MEDS: ACETAMINOPHEN 325 MG TAB PO ONE (18:53)
== END 2024-04-22 18:46 | disposition home or self-care (01) ==
LOC: LDRP 12:30
PROVIDERS: ADMIT Obstetrics & Gynecology; ATTEND Obstetrics & Gynecology
DX: O26.643 Intrahepatic cholestasis of pregnancy, third trimester (principal); K83.1 Obstruction of bile duct; O13.3 Gestational [pregnancy-induced] hypertension without significant proteinuria, third trimester; O24.419 Gestational diabetes mellitus in pregnancy, unspecified control; O14.13 Severe pre-eclampsia, third trimester; E66.01 Morbid (severe) obesity due to excess calories; Z3A.34 34 weeks gestation of pregnancy; Z79.899 Other long term (current) drug therapy; Z68.41 Body mass index [BMI] 40.0-44.9, adult; Z98.890 Other specified postprocedural states
CPT/HCPCS: 36415; 59025; 76817; 76818; 80053; 81001; 81002; 82570; 82948; 82962; 84156; 84550; 85025; 85610; 85730; 94760; 96361; 96365; 96366; 96372; 96375; G0378; J0702; J3475; 96360; 96374